=== PATIENT | female | born 1975 | race Caucasian/White ===

== ENCOUNTER 2023-05-20 09:58 | Outpatient (CLI) | payer BC | END 2023-05-20 09:59 | disposition home or self-care (01) | LOC: CSHMAMMO 09:58 | PROVIDERS: ATTEND Obstetrics & Gynecology | DX: Z12.31 Encounter for screening mammogram for malignant neoplasm of breast (principal); N64.89 Other specified disorders of breast | CPT/HCPCS: 77063; 77067 ==

== ENCOUNTER 2023-05-28 09:00 | Outpatient (CLI) | payer BC | END 2023-05-28 09:01 | disposition home or self-care (01) | LOC: CSHMAMMO 09:00 | PROVIDERS: ATTEND Obstetrics & Gynecology | DX: Q83.9 Congenital malformation of breast, unspecified (principal) | CPT/HCPCS: G0279 ==